=== PATIENT | male | born 1985 | race African-American/Black ===

== ENCOUNTER 2017-12-18 00:55 | Emergency (ER) | payer BC ==
[2017-12-18] MEDS: ACETAMINOPHEN 500 MG TAB PO (02:41)
== END 2017-12-18 04:08 | disposition home or self-care (01) ==
LOC: FTE 00:55
DX: S16.1XXA Strain of muscle, fascia and tendon at neck level, initial encounter (principal); S89.91XA Unspecified injury of right lower leg, initial encounter; S39.012A Strain of muscle, fascia and tendon of lower back, initial encounter; M62.838 Other muscle spasm; V49.50XA Passenger injured in collision with unspecified motor vehicles in traffic accident, initial encounter
CPT/HCPCS: 72040; 72100; 73030-RT; 73562; 99284-25

== ENCOUNTER 2018-07-22 17:27 | Emergency (ER) | payer BC ==
[2018-07-22] MEDS: IBUPROFEN 800 MG TAB PO (18:09)
== END 2018-07-22 19:29 | disposition home or self-care (01) ==
LOC: FTE 17:27
DX: M54.5 Low back pain (principal); M25.511 Pain in right shoulder; M54.2 Cervicalgia
CPT/HCPCS: 72040; 72100; 73030-RT; 99284-25